=== PATIENT | female | born 2000 | race Caucasian/White ===

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

== ENCOUNTER 2018-01-03 03:09 | Emergency (ER) | payer OTHER ==
[~2018-01-03] VITALS: Ht 167.6 cm; Wt 59.0 kg
[2018-01-03 03:11] VITALS: BP 125/78
== END 2018-01-03 04:11 | disposition home or self-care (01) ==
LOC: ER 03:09
DX: Z77.21 Contact with and (suspected) exposure to potentially hazardous body fluids (principal); Z86.14 Personal history of Methicillin resistant Staphylococcus aureus infection
CPT/HCPCS: 99282